=== PATIENT | male | born 1985 | race Caucasian/White ===

== ENCOUNTER 2017-05-22 18:50 | Emergency (ER) | payer OTHER ==
[2017-05-22] MEDS: AUGMENTIN 875 MG TAB PO (21:00)
[2017-05-22] MEDS: IBUPROFEN 600 MG TAB PO (21:00)
== END 2017-05-22 21:10 | disposition home or self-care (01) ==
LOC: M ED 18:50
DX: N45.1 Epididymitis (principal); H66.90 Otitis media, unspecified, unspecified ear; F17.200 Nicotine dependence, unspecified, uncomplicated; Z88.8 Allergy status to other drugs, medicaments and biological substances; Z88.5 Allergy status to narcotic agent
CPT/HCPCS: 99283

== ENCOUNTER 2019-10-27 10:21 | Emergency (ER) | payer OTHER ==
[~2019-10-27] VITALS: Ht 172.7 cm; Wt 78.4 kg
[~2019-10-27 10:21] MED LIST: AUGM875T28 PO; FLON1SPR
[2019-10-27] MEDS ORDERED: TYLENOL 2 TABS (10:29)
[2019-10-27] MEDS ORDERED: IBUPROFEN 400 (10:29)
[2019-10-27] MEDS ORDERED: LIDOCAINE 2% MDV 20ML VIAL SC ONE (10:45)
[2019-10-27 12:13] VITALS: BP 125/73
== END 2019-10-27 12:14 | disposition home or self-care (01) ==
LOC: M ED 10:21
DX: S67.01XA Crushing injury of right thumb, initial encounter (principal); S61.011A Laceration without foreign body of right thumb without damage to nail, initial encounter; W26.8XXA Contact with other sharp object(s), not elsewhere classified, initial encounter; Y92.89 Other specified places as the place of occurrence of the external cause; Y93.89 Activity, other specified; Y99.0 Civilian activity done for income or pay; F17.220 Nicotine dependence, chewing tobacco, uncomplicated; Z88.5 Allergy status to narcotic agent

== ENCOUNTER 2019-11-03 16:40 | Emergency (ER) | payer OTHER ==
[~2019-11-03] VITALS: Ht 172.7 cm; Wt 79.7 kg
[~2019-11-03 16:40] MED LIST changes: +IBUPROFEN 400; +TYLENOL 2 TABS
[2019-11-03 16:41] VITALS: BP 135/81
[2019-11-03] MEDS ORDERED: ALEV220T22 PO (16:45)
[2019-11-03] MEDS ORDERED: KEFL500C17 PO (17:54)
[2019-11-03] MEDS ORDERED: CEPHALEXIN 500 MG CAP PO ONE (18:00)
== END 2019-11-03 18:32 | disposition home or self-care (01) ==
LOC: M ED 16:40
DX: Z48.02 Encounter for removal of sutures (principal); F17.220 Nicotine dependence, chewing tobacco, uncomplicated; Z88.6 Allergy status to analgesic agent